=== PATIENT | female | born 1930 | race Caucasian/White ===

== ENCOUNTER 2017-01-28 09:44 | Emergency (ER) | payer OTHER, MEDICARE ==
[~2017-01-28] VITALS: Ht 160 cm; Wt 72.6 kg
--- NOTE | 2017-01-28 11:44 | ED GI/GU/ABDOMINAL COMPLAINT ---
History of Present Illness General Chief Complaint: Dizziness Stated Complaint: DIZZY LIGHT HEADED X 1MNTH PT HAS SEEN PMD TWICE Source: patient, old records Exam Limitations: no limitations Vital Signs & Intake/Output Vital Signs & Intake/Output Vital Signs Date Time Temp Pulse Resp B/P B/P Pulse O2 O2 Flow FiO2 Mean Ox Delivery Rate 01/28 1206 98.0 69 19 134/76 97 Room Air 01/28 1000 98.3 73 18 137/79 100 Room Air Allergies Coded Allergies: naproxen (Mild, ABDOMINAL PAIN 01/28/17) Reconcile Medications Omeprazole 20 MG TABLET. 1 TAB PO DAILY GERD Triage Note: PT TO ED FOR DIZZINESS AND NAUSEA X 1 MONTH AND VOMITING AFTER NAPROXEN X 1. DENIES CP, SOB, LISA. REPORTING NOTHING MAKES DIZZINESS BETTER OR WORSE, STATING "ITS BEEN CONSTANT FOR A MONTH AND TARA SEEN MY PRIMARY AND HE DOESNT DO NOTHIN." Triage Nurses Notes Reviewed? yes ? N Is pt currently ? No HPI: 87F PMH HTN, HYPOTHYROIDISM PRESENTS WITH 1 MONTH OF "FEELING LOUSY", LIGHTHEADED CONSTANTLY, AND ABDOMINAL DISCOMFORT. REPORTS THAT SHE CONSTANTLY FEELS A BIT LIGHTHEADED BUT NEVER GETS CLOSE TO SYNCOPE, DENIES VERTIGO, DENIES ORTHOSTATIC SYMPTOMS. REPORTS THAT SHE HAD FORMERLY BEEN CONSTIPATED BUT ATE SOME PRUNES AND HAD TWO SOFT BM THIS MORNING. SHE DESCRIBES HER ABDOMINAL DISCOMFORT JUST A GENERAL FEELING OF UPSET. SHE WAS GIVEN NAPROXEN BY HER PCP BUT IT MADE HER VOMIT. SHE HAS NO OTHER COMPLAINTS AND ASIDE FROM "LOUSY" SHE FEELS WELL. DENIES HEADACHE, CHEST PAIN, SOB, DIARRHEA, DYSURIA. Past History Travel History Traveled to [place] past 21 day No Medical History Any Pertinent Medical History? see below for history Neurological: NONE EENT: NONE Cardiovascular: hypertension, GERD Respiratory: NONE Gastrointestinal: NONE Hepatic: NONE Renal: NONE Musculoskeletal: NONE Psychiatric: NONE Endocrine: HYPOTHYROID Blood Disorders: NONE Cancer(s): NONE Surgical History Surgical History: unobtainable Psychosocial History What is your primary language Armenian Tobacco Use: Never used ETOH Use: denies use Illicit Drug Use: denies illicit drug use Family History Hx Contributory? No Review of Systems Review of Systems Constitutional: Reports: see HPI. EENTM: Reports: no symptoms. Respiratory: Reports: no symptoms. Cardiovascular: Reports: no symptoms. GI: Reports: see HPI. Genitourinary: Reports: no symptoms. Musculoskeletal: Reports: no symptoms. Skin: Reports: no symptoms. Neurological/Psychological: Reports: no symptoms. Hematologic/Endocrine: Reports: no symptoms. Immunologic/Allergic: Reports: no symptoms. All Other Systems: Reviewed and Negative Physical Exam Physical Exam General Appearance: well developed/nourished, no apparent distress, alert, awake Head: atraumatic, normal appearance Eyes: Bilateral: normal appearance. 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 No Severe Sepsis Present: No Septic Shock Present: No Progress Differential Diagnosis: AAA, AMI, appendicitis, biliary colic, bowel obstruction , colon cancer, cholecystitis, diverticulitis, ectopic , endometritis, esophageal varices, gastritis, hepatitis, hernia, hemorrhoids, ischemic bowel, inflamm bowel dis, intrauterine , kidney stone, Chelsi-Emma tear, ovarian cyst, ovarian torsion, pancreatitis, PID/cervicitis, peptic ulcer, PUD/ GERD, perforated viscous, SBO, threatened AB, UTI/pyelo Plan of Care: Orders Procedure Date/time Status Add-on Test (ER Only) 01/28 1144 Active TROPONIN LEVEL 01/28 1134 Complete COMPREHENSIVE METABOLIC PANEL 01/28 1125 Complete CBC WITHOUT DIFFERENTIAL 01/28 1125 Complete EKG 01/28 1002 Active Laboratory Tests 01/28/17 1134: Anion Gap 11, Estimated GFR > 60, BUN/Creatinine Ratio 28.8 H, Glucose 133 H, Calcium 10.3 H, Total Bilirubin 0.9, AST 35, ALT 39, Alkaline Phosphatase 65, Troponin I < 0.01, Total Protein 7.3, Albumin 4.7, Globulin 2.6, Albumin/ Globulin Ratio 1.8, CBC w Diff NO MAN DIFF REQ, RBC 4.53, MCV 93.2, MCH 31.1 H, RDW 13.9, MPV 7.6, Gran % 74.9, Lymphocytes % 17.9 L, Monocytes % 6.1, Eosinophils % 0.8, Basophils % 0.3, Absolute Granulocytes 8.9 H, Absolute Lymphocytes 2.1, Absolute Monocytes 0.7 H, Absolute Eosinophils 0.1, Absolute Basophils 0, PUBS MCHC 33.4 Initial ED EKG: normal sinus rhythm, no ST T wave changes Departure Departure Time of Disposition: 1239 Disposition: HOME OR SELF CARE Condition: Stable Clinical Impression Primary Impression: GERD (gastroesophageal reflux disease) Referrals: LENNIE MCINTOSH,RITU Gonzalez (PCP/Family) Additional Instructions: STOP TAKING ZANTAC. START TAKING OMEPRAZOLE. FOLLOW UP WITH YOUR NEW PCP. Departure Forms: Customer Survey General Discharge Information Prescriptions: Current Visit Scripts Omeprazole 1 TAB PO DAILY #30 TAB
[2017-01-28 11:55] LABS: ABSOLUTE BASOPHIL COUNT 0 /CUMM (0.0-0.2); ABSOLUTE EOSINOPHIL COUNT 0.1 /CUMM (0.0-0.7); ABSOLUTE GRANULOCYTE CT 8.9 /CUMM (1.4-6.5); ABSOLUTE LYMPH COUNT 2.1 /CUMM (1.2-3.4); ABSOLUTE MONOCYTE COUNT 0.7 /CUMM (0.10-0.60); BASOPHIL % 0.3 % (0.0-2.0); EOSINOPHIL % 0.8 % (0-5); GRANULOCYTE % 74.9 % (42.2-75.2); HEMATOCRIT 42.3 % (37-47); MEAN CORPUSCULAR HGB 31.1 PG (27.0-31.0); MEAN CORPUSCULAR HGB CONC 33.4 G/DL (33.0-37.0); MEAN CORPUSCULAR VOLUME 93.2 FL (81.0-99.0); MEAN PLATELET VOLUME 7.6 FL (7.4-10.4); PLATELET COUNT 289 /CUMM (130-400); RBC DISTRIBUTION WIDTH 13.9 % (11.5-14.5); RED BLOOD CELL CT 4.53 /CUMM (4.20-5.40); WHITE BLOOD CELL COUNT 11.9 /CUMM (4.8-10.8)
[2017-01-28] MEDS ORDERED: OMEPRAZOLE20 M3 PO (12:41)
== END 2017-01-28 12:58 ==
LOC: ERH 09:44
PROVIDERS: Internal Medicine
DX: K21.9 Gastro-esophageal reflux disease without esophagitis (principal)
CPT/HCPCS: 93005; 93010